=== PATIENT | male | born 1980 | race Caucasian/White ===

== ENCOUNTER 2016-05-23 13:51 | Emergency (ER) | payer OTHER ==
[~2016-05-23] VITALS: Ht 182.9 cm; Wt 93.0 kg
== END 2016-05-23 15:45 | disposition home or self-care (01) ==
LOC: ER 13:51
DX: S61.012A Laceration without foreign body of left thumb without damage to nail, initial encounter (principal); J45.990 Exercise induced bronchospasm; W26.0XXA Contact with knife, initial encounter; Y93.89 Activity, other specified; Y92.89 Other specified places as the place of occurrence of the external cause; Y99.8 Other external cause status